=== PATIENT | female | born 2000 | race Caucasian/White ===

== ENCOUNTER 2023-02-07 21:44 | Emergency (ER) | payer OTHER ==
[2023-02-07 21:49] VITALS: BP 105/72; PULSE 118; RESP 18; TEMP 100.4; BMI 30.2
[2023-02-07] MEDS ORDERED: SODIUM CHLORIDE 0.9% 500 ML INFUS.BAG IV ONE (22:35)
[2023-02-07] MEDS ORDERED: KETOROLAC TROMETHAMINE 15 MG/ML VIAL IVPUSH ONE (22:35)
[2023-02-07] MEDS ORDERED: KETOROLAC TROMETHAMINE 15 MG/ML VIAL ONE (23:10)
[2023-02-07 23:55] LABS: BASO % 0.2 % (0-2.0); EOS % 1.3 % (0-4.5); HEMATOCRIT 37.1 % (32.4-45.2); HEMOGLOBIN 12.3 GM/dL (10.7-15.3); LYMPH % 6.2 % (8-40); MCH 27.9 pg (25.7-33.7); MCHC 33.1 g/dl (32.0-36.0); MEAN CELL VOLUME 84.4 fl (80-96); MEAN PLT VOLUME 8.7 fl (7.5-11.1); MONO % 7.4 % (3.8-10.2); NEUT % 84.9 % (42.8-82.8); PLATELET COUNT 297 10^3/uL (134-434); RBC 4.39 M/mm3 (3.60-5.2); RDW 13.8 % (11.6-15.6); WHITE BLOOD COUNT 15.5 K/mm3 (4.0-10.0)
[2023-02-08 00:19] LABS: POTASSIUM 3.7 mmol/L (3.5-5.1)
[2023-02-08 00:21] LABS: ALBUMIN 3.4 g/dl (3.4-5.0); CALCIUM 8.9 mg/dL (8.5-10.1)
[2023-02-08 00:24] LABS: CREATININE 0.6 mg/dL (0.55-1.3)
[2023-02-08 00:26] LABS: TOT PROT 7.3 g/dl (6.4-8.2)
[2023-02-08 00:29] LABS: BLOOD UREA NITROGEN 7.2 mg/dL (7-18)
[2023-02-08 00:37] LABS: BILIRUBIN,TOTAL 0.3 mg/dL (0.2-1)
[2023-02-08] MEDS ORDERED: AMOX TR/POT CLAV 875MG/125MG TABLETS (FP) PO ONE (00:44)
[2023-02-08] MEDS ORDERED: AMOX TR/POT CLAV 875MG/125MG TABLETS (FP) ONE (01:09)
== END 2023-02-08 01:19 | disposition home or self-care (01) ==
LOC: JER 21:44
PROC: 3E0333Z Introduction of Anti-inflammatory into Peripheral Vein, Percutaneous Approach (ICD-10-PCS; principal; 2023-02-07)
DX: O86.4 Pyrexia of unknown origin following delivery (principal); O91.23 Nonpurulent mastitis associated with lactation
CPT/HCPCS: 36415; 80053; 83605; 85025; 87040; 99284-25

== ENCOUNTER 2023-08-12 22:49 | Emergency (ER) | payer OTHER ==
[2023-08-12 22:53] VITALS: BMI 29.2
[2023-08-12 23:30] LABS: BASO % 0.6 % (0-2.0); EOS % 3.1 % (0-4.5); HEMOGLOBIN 13.6 GM/dL (10.7-15.3); LYMPH % 30.7 % (8-40); MCH 28.9 pg (25.7-33.7); MCHC 34.1 g/dl (32.0-36.0); MEAN CELL VOLUME 84.9 fl (80-96); MEAN PLT VOLUME 9.4 fl (7.5-11.1); MONO % 8.3 % (3.8-10.2); NEUT % 57.3 % (42.8-82.8); PLATELET COUNT 245 10^3/uL (134-434); RBC 4.71 M/mm3 (3.60-5.2); RDW 12.6 % (11.6-15.6); WHITE BLOOD COUNT 10.2 K/mm3 (4.0-10.0)
[2023-08-12] MEDS: SODIUM CHLORIDE 0.9% 500 ML INFUS.BAG IV ONE (23:30)
[2023-08-12 23:45] LABS: POTASSIUM 3.9 mmol/L (3.5-5.1)
[2023-08-12 23:47] LABS: CALCIUM 9.7 mg/dL (8.5-10.1)
[2023-08-12 23:48] LABS: ALBUMIN 3.7 g/dl (3.4-5.0); BLOOD UREA NITROGEN 9.7 mg/dL (7-18)
[2023-08-12 23:51] LABS: CREATININE 0.8 mg/dL (0.55-1.3)
[2023-08-12 23:53] LABS: BILIRUBIN,TOTAL 0.1 mg/dL (0.2-1)
[2023-08-13 00:35] VITALS: BP 112/68; PULSE 85; RESP 16; TEMP 98.2
== END 2023-08-13 01:28 | disposition home or self-care (01) ==
LOC: JER 22:49
PROC: 3E033NZ Introduction of Analgesics, Hypnotics, Sedatives into Peripheral Vein, Percutaneous Approach (ICD-10-PCS; principal; 2023-08-12)
DX: F12.920 Cannabis use, unspecified with intoxication, uncomplicated (principal)
CPT/HCPCS: 36415; 80053; 84703; 85025; 93005; 93010; 99284-25

== ENCOUNTER 2023-09-19 16:39 | Emergency (ER) | payer OTHER ==
[2023-09-19 17:30] VITALS: RESP 18; TEMP 97.8; BMI 28.3
[2023-09-19] MEDS ORDERED: ACETAMINOPHEN INJECTION 100 ML IVPB ONE (17:47)
[2023-09-19] MEDS: SODIUM CHLORIDE 0.9% 1000 ML INFUS.BAG IV ONE ×2 (17:52→19:28)
[2023-09-19 18:07] LABS: BASO % 0.6 % (0-2.0); EOS % 7.1 % (0-4.5); HEMOGLOBIN 14.4 GM/dL (10.7-15.3); LYMPH % 27.4 % (8-40); MCH 28.4 pg (25.7-33.7); MCHC 33.4 g/dl (32.0-36.0); MEAN PLT VOLUME 10.3 fl (7.5-11.1); MONO % 8.3 % (3.8-10.2); NEUT % 56.6 % (42.8-82.8); PLATELET COUNT 240 10^3/uL (134-434); RBC 5.06 M/mm3 (3.60-5.2); RDW 13.4 % (11.6-15.6); WHITE BLOOD COUNT 8.1 K/mm3 (4.0-10.0)
[2023-09-19 18:26] LABS: POTASSIUM 3.9 mmol/L (3.5-5.1)
[2023-09-19 18:29] LABS: CALCIUM 10.1 mg/dL (8.5-10.1)
[2023-09-19 18:30] LABS: ALBUMIN 4.1 g/dl (3.4-5.0); BLOOD UREA NITROGEN 13.2 mg/dL (7-18)
[2023-09-19 18:33] LABS: CREATININE 0.9 mg/dL (0.55-1.3)
[2023-09-19 18:34] LABS: BILIRUBIN,TOTAL 0.3 mg/dL (0.2-1); TOT PROT 8.3 g/dl (6.4-8.2)
[2023-09-19] MEDS: ACETAMINOPHEN 1000 MG/100 ML BAG IVPB ONE (18:42)
[2023-09-19 20:37] LABS: EPI CELLS 4 /uL (0-25.1); HYALINE CASTS 0 /uL (0-3.1); URINE APPEARANCE CLEAR; URINE BACTERIA 48 /uL (0-1359); URINE BILIRUBIN NEGATIVE (NEGATIVE); URINE COLOR YELLOW; URINE GLUCOSE (UA) NEGATIVE (NEGATIVE); URINE KETONE 2+ (NEGATIVE); URINE LEUK ESTERASE NEGATIVE (NEGATIVE); URINE NITRITE NEGATIVE (NEGATIVE); URINE PROTEIN NEGATIVE (NEGATIVE); URINE RBC 1323 /uL (0-23.9); URINE UROBILINOGEN 0.2 mg/dL (0.2-1.0); URINE WBC 6 /uL (0-25.8)
[2023-09-19 20:40] LABS: HCG,QUALITATIVE URINE Negative
[2023-09-19 21:58] VITALS: BP 107/70; PULSE 77
[2023-09-19] MEDS ORDERED: KETOROLAC TROMETHAMINE 15 MG/ML VIAL ONE (22:42)
[2023-09-19] MEDS: KETOROLAC TROMETHAMINE 15 MG/ML VIAL IVPUSH ONE (22:46)
[2023-09-20] MEDS ORDERED: cefTRIAXone SODIUM 1 GM VIAL ONE (01:00)
[2023-09-20] MEDS ORDERED: LIDOCAINE HCL/PF 1% SDV 5ML VIAL ONE (01:00)
== END 2023-09-20 01:55 | disposition home or self-care (01) ==
LOC: JER 16:39
PROC: 3E0333Z Introduction of Anti-inflammatory into Peripheral Vein, Percutaneous Approach (ICD-10-PCS; principal; 2023-09-19)
PROC: 3E02329 Introduction of Other Anti-infective into Muscle, Percutaneous Approach (ICD-10-PCS; 2023-09-19)
DX: R10.84 Generalized abdominal pain (principal)
CPT/HCPCS: 36415; 74176-TC; 76830-TC; 80053; 81003; 84703; 85025; 87077; 87086; 87491; 87591; 96372; 96374; 99284-25

== ENCOUNTER 2023-09-26 20:19 | Emergency (ER) | payer OTHER ==
[2023-09-26 20:26] VITALS: TEMP 98.2; BMI 28.3
[2023-09-26] MEDS ORDERED: ALBUTEROL SO4 2.5/IPRATROPIUM 0.5 INH SOL 3 ML VIAL.NEB. NEB ONE (20:35)
[2023-09-26] MEDS: ALBUTEROL SO4 2.5/IPRATROPIUM 0.5 INH SOL 3 ML VIAL.NEB. NEB SCH (21:02)
[2023-09-26] MEDS ORDERED: methylPREDNISolone NA SUCC 125 MG/2 ML VIAL ONE (21:04)
[2023-09-26 21:09] LABS: BASO % 0.6 % (0-2.0); EOS % 8.5 % (0-4.5); HEMATOCRIT 42.3 % (32.4-45.2); LYMPH % 32.1 % (8-40); MCH 28.3 pg (25.7-33.7); MCHC 33.2 g/dl (32.0-36.0); MEAN CELL VOLUME 85.3 fl (80-96); MEAN PLT VOLUME 10.9 fl (7.5-11.1); MONO % 12.5 % (3.8-10.2); NEUT % 46.3 % (42.8-82.8); PLATELET COUNT 226 10^3/uL (134-434); RBC 4.96 M/mm3 (3.60-5.2); RDW 13.7 % (11.6-15.6); WHITE BLOOD COUNT 9.5 K/mm3 (4.0-10.0)
[2023-09-26] MEDS: methylPREDNISolone NA SUCC 125 MG/2 ML VIAL IVPUSH ONE (21:11)
[2023-09-26] MEDS: LACTATED RINGERS SOLUTION 1000 ML INFUS.BAG IV ONE (21:11)
[2023-09-26 21:26] VITALS: RESP 16
[2023-09-26 21:33] LABS: POTASSIUM 4.3 mmol/L (3.5-5.1)
[2023-09-26 21:38] LABS: ALBUMIN 3.8 g/dl (3.4-5.0); BLOOD UREA NITROGEN 13.3 mg/dL (7-18); CALCIUM 9.8 mg/dL (8.5-10.1)
[2023-09-26 21:42] LABS: CREATININE 0.7 mg/dL (0.55-1.3)
[2023-09-26 21:43] LABS: BILIRUBIN,TOTAL 0.3 mg/dL (0.2-1)
[2023-09-26 23:04] VITALS: BP 101/70; PULSE 78
== END 2023-09-26 23:11 | disposition home or self-care (01) ==
LOC: JER 20:19
PROC: 3E030GC Introduction of Other Therapeutic Substance into Peripheral Vein, Open Approach (ICD-10-PCS; principal; 2023-09-26)
PROC: 3E0F7GC Introduction of Other Therapeutic Substance into Respiratory Tract, Via Natural or Artificial Opening (ICD-10-PCS; 2023-09-26)
DX: R06.02 Shortness of breath (principal); R07.89 Other chest pain; R53.83 Other fatigue; R09.81 Nasal congestion; R05.9 Cough, unspecified; R04.0 Epistaxis; J45.21 Mild intermittent asthma with (acute) exacerbation
CPT/HCPCS: 36415; 71046-TC-FY; 80053; 85025; 85379; 93005; 93010; 94640; 96374; 99285-25

== ENCOUNTER 2024-01-21 22:10 | Emergency (ER) | payer OTHER ==
[2024-01-21 22:18] VITALS: BP 134/87; PULSE 125; RESP 18; TEMP 97.8; BMI 23.6
[2024-01-22] MEDS: LORazepam 2 MG TABLET PO ONE ×2 (00:11)
== END 2024-01-22 00:15 | disposition home or self-care (01) ==
LOC: JER 22:10
DX: F41.9 Anxiety disorder, unspecified (principal); G47.00 Insomnia, unspecified; R11.0 Nausea
CPT/HCPCS: 93005; 93010; 99283-25